=== PATIENT | female | born 1950 | race Caucasian/White ===

== ENCOUNTER 2020-02-06 14:22 | Outpatient (CLI) | payer MEDICARE, OTHER, SELFPAY ==
--- NOTE | ~2020-02-06 | MM_ITS ---
EXAMINATION: MM screening [facility] BI w rufus HISTORY: Screening mammogram TECHNIQUE: Craniocaudal and mediolateral oblique 3-D tomosynthesis images were obtained and synthetic 2-D images were generated. CAD analysis was submitted and interpreted. COMPARISON: 12/2018, , 10/08/2016 and lateral digital screening mammogram examinations BREAST PARENCHYMAL COMPOSITION: There are scattered areas of fibroglandular density. FINDINGS: Occasional small circumscribed stable benign-appearing opacities are noted bilaterally. The re is no evidence of suspicious mass, calcification, or architectural distortion to suggest malignanc y in either breast. There has been no suspicious interval change. IMPRESSION: 1. No mammographic evidence of malignancy. 2. Recommend routine screening mammography in one year. BI-RADS Category 2: Benign finding(s). Reviewed, dictated and finalized at location A. 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
== END 2020-02-06 14:23 | disposition home or self-care (01) ==
LOC: ANHIMG 14:27
PROVIDERS: PCP Internal Medicine; Visit Provider Internal Medicine
DX: Z12.31 Encounter for screening mammogram for malignant neoplasm of breast (principal)
CPT/HCPCS: 77063; 77067

== ENCOUNTER 2020-04-16 11:48 | Outpatient (CLI) | payer MEDICARE, OTHER, SELFPAY | END 2020-04-16 11:49 | disposition home or self-care (01) | LOC: ANHCOVIDVC 11:48 | PROVIDERS: PCP Internal Medicine | DX: Z23 Encounter for immunization (principal) | CPT/HCPCS: 0001A; 91300 ==

== ENCOUNTER 2020-05-07 11:42 | Outpatient (CLI) | payer MEDICARE, OTHER, SELFPAY | END 2020-05-07 11:43 | disposition home or self-care (01) | LOC: ANHCOVIDVC 11:42 | PROVIDERS: PCP Internal Medicine | DX: Z23 Encounter for immunization (principal) | CPT/HCPCS: 0002A; 91300 ==

== ENCOUNTER → 2020-06-23 11:46 | Outpatient (CLI) | payer MEDICARE, OTHER, SELFPAY ==
--- NOTE | ~2020-06-23 | XR_ITS ---
EXAMINATION: XR chest 2V DATE: 06/23/2020 12:12 INDICATION: Cough. TECHNIQUE: Frontal and lateral views of the chest were obtained. COMPARISON: Chest 2 views 09/07/2018 FINDINGS: There is mild scarring at the lung apices. No pleural effusion or pneumothorax. The heart s ize is normal. IMPRESSION: 1. Mild scarring at the lung apices. Reviewed, dictated and finalized at location B.
== END ==
PROVIDERS: Visit Provider Internal Medicine
DX: R05 Cough (principal)
CPT/HCPCS: 71046

== ENCOUNTER → 2021-01-19 12:15 | Outpatient (CLI) | payer MEDICARE, OTHER, SELFPAY ==
--- NOTE | ~2021-01-19 | MR_ITS ---
EXAMINATION: MR lumbar spine wo con DATE: 01/19/2021 13:02 INDICATION: Lumbar radiculopathy with low back and bilateral leg pain TECHNIQUE: Magnetic resonance imaging (MRI) of the lumbar spine was performed without intravenous con trast. Sequences included sagittal T2-weighted FSE, sagittal T2-weighted FS FSE, sagittal T1-weighted FSE, and axial T2-weighted FSE. COMPARISON: None FINDINGS: Unchanged 2 mm retrolisthesis L2 on L3 and 3 mm anterolisthesis L5 on S1. Vertebral body heights are normal. Severe disc height loss at L2-L3, L3-L4 and L5-S1. Increasing moderate disc height loss at L4 -L5 and mild to moderate disc height loss at L1-L2. Unchanged moderate disc height loss at T10-T11 an d T11-T12. A few focal regions of relatively high T1 hyperintense marrow signal which could represent hemangiomas or focal renal marrow sparing. Mild fibrovascular degenerative endplate changes posterio rly at both sides of the L4-L5 and L5-S1 disc space is and at the anterior aspect of the superior end plates of T11 and T12. The conus medullaris terminates at L1-L2. There is normal signal in the caudal spinal cord. Paravertebral soft tissues are unremarkable. The following disc levels are specifically discussed: T12-L1: The disc does not extend beyond the endplate margin. There is moderate bilateral facet joint osteoarthritis. There is no neural foraminal stenosis. There is no central canal stenosis. L1-L2: Disc is bulging. There is severe right and moderate left facet joint osteoarthritis. There is mild bilateral neural foraminal stenosis. There is mild central canal stenosis. L2-L3: Annular fissure and broad-based disc extrusion extending from foraminal zone to foraminal zone with disc material extending 2-3 mm caudal to the level of the superior endplate of L3. There is mil d bilateral facet joint osteoarthritis. There is mild bilateral neural foraminal stenosis. There is m ild central canal stenosis. L3-L4: Annular fissure and broad-based disc extrusion extending from foraminal zone to foraminal zone with disc material extending 2 mm caudal to the level of the superior endplate of L3. There is hyper trophy of the left ligamentum flavum. There is severe left and moderate right facet joint osteoarthr itis. There is mild bilateral neural foraminal stenosis. There is mild central canal stenosis. L4-L5: Disc is bulging with annular fissure and left foraminal zone disc extrusion with disc material extending up to 4 mm cephalad to the level of the inferior endplate of L4. There is hypertrophy of t he ligamentum flavum. There is severe bilateral facet joint osteoarthritis. There is mild to moderat e bilateral neural foraminal stenosis. There is mild central canal stenosis. L5-S1: Broad-based disc extrusion extending from foraminal zone to foraminal zone with disc material extending couple millimeters cephalad to the level of the inferior endplate of L5. There is severe bi lateral facet joint osteoarthritis. There is moderate right and mild to moderate left neural foramina l stenosis. There is mild central canal stenosis. IMPRESSION: 1. Mild progression of severe lumbar spondylosis. Reviewed, dictated and finalized at location B. 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
== END ==
PROVIDERS: Visit Provider Nurse Practitioner Family
DX: M47.26 Other spondylosis with radiculopathy, lumbar region (principal)
CPT/HCPCS: 72148

== ENCOUNTER → 2021-02-17 13:20 | Outpatient (CLI) | payer MEDICARE, OTHER, SELFPAY ==
--- NOTE | ~2021-02-17 | MM_ITS ---
EXAMINATION: MM screening [facility] BI w rufus HISTORY: Screening mammogram TECHNIQUE: Craniocaudal and mediolateral oblique 3-D tomosynthesis images were obtained and synthetic 2-D images were generated. CAD analysis was submitted and interpreted. COMPARISON: 02/06/2020, 12/18/2018, 10/13/2017 BREAST PARENCHYMAL COMPOSITION: There are scattered areas of fibroglandular density. FINDINGS: There is no evidence of suspicious mass, calcification, or architectural distortion to sugg est malignancy in either breast. There has been no suspicious interval change. IMPRESSION: 1. No mammographic evidence of malignancy. 2. Recommend routine screening mammography in one year. BI-RADS Category 1: Negative Reviewed, dictated and finalized at location A. 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
== END ==
PROVIDERS: PCP Internal Medicine; Visit Provider Obstetrics & Gynecology Gynecology
DX: Z12.31 Encounter for screening mammogram for malignant neoplasm of breast (principal)
CPT/HCPCS: 77063; 77067

== ENCOUNTER 2021-12-01 14:07 | Outpatient (CLI) | payer MEDICARE, OTHER, SELFPAY ==
--- NOTE | 2021-12-01 14:22 | ECG_ITS ---
Measurements Intervals [place] Rate: 51 P: 69 [place]: 160 QRS: 76 QRSD: 77 T: 53 QT: 430 QTc: 398 Interpretive Statements SINUS BRADYCARDIA BORDERLINE ECG COMPARED TO ECG 09/07/2018 11:24:52 NO SIGNIFICANT CHANGES Electronically Signed On 12-01-2021 15:02:34 CDT by Buddy Veras M.D.
== END 2021-12-01 14:08 | disposition home or self-care (01) ==
PROVIDERS: PCP Internal Medicine; Visit Provider Neurological Surgery
DX: Z01.818 Encounter for other preprocedural examination (principal); R94.31 Abnormal electrocardiogram [ECG] [EKG]
CPT/HCPCS: 93005

== ENCOUNTER 2021-12-09 13:18 | Outpatient (CLI) | payer MEDICARE, OTHER, SELFPAY | END 2021-12-09 13:19 | disposition home or self-care (01) | LOC: ANHSURGERY 13:26 | PROVIDERS: PCP Internal Medicine; Visit Provider Neurological Surgery | DX: M48.07 Spinal stenosis, lumbosacral region (principal); Z01.818 Encounter for other preprocedural examination | CPT/HCPCS: 36415; 86850; 86900; 86901 ==

== ENCOUNTER 2021-12-15 00:40 | Day surgery (SDC) | payer MEDICARE, OTHER, SELFPAY ==
--- NOTE | 2021-12-07 15:16 | PC.NURSE ---
Report to the Outpatient Waiting Room, entrance under the green pavilion located off [facility], at time ___30____ on date __12/15/21 . Planned Procedure Time: __1030 . Time changes happen often and if your time is changed the preop area will call you the afternoon before. - You and your visitor will be asked to self-screen and do not enter if you have any COVID symptoms. - We encourage only one visitor and NO visitors under age 16 are allowed at this time. Your visitor will receive communication by the phone number that is given day of service. - The patient visitor is requested to social distance or may leave the building when not with patient due to restrictions. - A mask is required within the hospital. Patients may have clear liquids (water, carbonated beverages, clear teas, apple juice) until 3 hours prior to surgery with a maximum of 20 ounces. - No food from midnight until time of surgery - Infants may have breast milk until 4 hours before surgery, formula 6 hours prior to surgery. - Children will be allowed to drink immediately following surgery. If applicable, please bring a bottle or sippy cup to assist with drinking. Juice, water, soda, and popsicles are readily available. For infants on formula, please bring formula the day of surgery. Pacifiers are allowed. Take the following medications with a SIP of water the morning of surgery: ___NONE Medications to discontinue per physician PT STATES ALL VITAMINS AND SUPPLEMENTS 7 DAYS PRE OP_PER DR ANTHONY Date to take last dose___12/07/21 Please no make-up, nail malay, hairspray, perfume, deodorant, or body powder the day of surgery. No jewelry (including any body piercings) or valuables the day of surgery, leave them at home. Please take a shower or bath the night before, or the morning of, surgery with an antibacterial soap. Wear comfortable, loose fitting clothing. Children are encouraged to wear pajamas. - Jewelry must be removed prior to entering the operating room. Rings and piercings that are not removed may be cut off. - The hospital will not accept responsibility for valuables. - Please leave all valuables, including medications, at home the day of surgery. If you are going home after surgery, a licensed rolloff truck driver must drive you home. - NO public transportation without another adult. - We recommend that an adult stay with you for 24 hours following discharge. - We also recommend that you do not drive, make important decision, drink alcoholic beverages, or take any drugs that were not prescribed by your health care provider for at least 24 hours after your discharge time. For Pediatric surgeries, we recommend two adults accompany the child home. Follow any additional instructions given to you from your surgeon. If you or anyone in your household have experienced Covid symptoms in the past week, please notify your surgeon or the nurse liaison at the phone number below for possible testing. Telephone instructions given to _PATIENT and asked if any additional questions and then verbalized understanding. Patient advised to call surgeon office or pre surgery nurse liaison [phone] if any additional questions.
[2021-12-07 15:25] VITALS: BMI 24.0
[2021-12-15] VITALS (15 sets, daily range): BP systolic 106–139; BP diastolic 49–97; PULSE 61–87; RESP 12–20; TEMP 36.2; O2SAT 96–100
--- NOTE | ~2021-12-15 | XR_ITS ---
EXAMINATION: XR fluoroscopy no charge DATE: 12/15/2021 12:35 INDICATION: Right L5-S1 foraminotomy TECHNIQUE: A single lateral fluoroscopic image of the lower lumbar spine was obtained during procedur e performed by Dr. Meyers. Radiologist was not present for the imaging or procedure. The amount of fluoroscopy time used during this procedure was 0.1 minutes. COMPARISON: None. FINDINGS: Moderate lumbar spondylosis. The tip of a metallic probe projects over the posterior elements of L5. Soft tissue retractors and lap sponges projected over a lucent surgical wound posterior to the lower lumbar spine. IMPRESSION: 1. Fluoroscopy utilized during neurosurgical procedure at the lower lumbar spine. See procedure note for further detail. Reviewed, dictated and finalized at location B. IMPRESSION: 1. Fluoroscopy utilized during neurosurgical procedure at the lower lumbar spin e. See procedure note for further detail.
[2021-12-15] MEDS: LACTATED RINGERS 1,000 ML 30 ML IV CONT ×2 (09:00→12:22)
[2021-12-15] MEDS: FAMOTIDINE 20 MG/2 ML VIAL IV PUSH (09:41)
--- NOTE | 2021-12-15 10:03 | WPDANESEPPF ---
Anes - Initial Pre Proc Eval Procedure: Operation Date: 12/15/21 10:30 Proposed Procedures p Right L5-S1 Foraminotomy - Juan Meyers MD Date/Time: 12/15/21 10:03 Surgeon: Juan Meyers MD Pre Op Diagnosis: Right L5-S1 Foraminal Stenosis Patient Data Age: 71 Gender: F Height: 1.63 m Weight: 62.7 kg Last Vital Signs Temp 36.2 C L 12/15/21 08:40 Pulse 61 12/15/21 08:40 Resp 18 12/15/21 08:40 BP 139/70 12/15/21 08:40 Pulse Ox 98 12/15/21 08:40 O2 Del Method Room Air 12/15/21 08:40 Allergies Allergy/AdvReac Type Severity Reaction Status Date / Time nabumetone Allergy Severe STOMACH Verified 12/15/21 09:19 BLEED erythromycin base Allergy Mild EYE DRYNESS Verified 12/15/21 09:19 metronidazole Allergy Mild HIVES Verified 12/15/21 09:19 gabapentin AdvReac Intermediate Hives Verified 12/15/21 09:19 pregabalin [From Lyrica] AdvReac Intermediate Hives Verified 12/15/21 09:19 Home Medications Medication Instructions Recorded Confirmed Type Bacillus coagulans 10 billion cell 10 cell PO DAILY 03/09/19 12/07/21 History capsule,delayed release (Probiotic (B. coagulans)) acetaminophen 650 mg 650 mg PO Q12H 03/09/19 12/07/21 History tablet,extended release (Tylenol Arthritis Pain) calcium carbonate 600 mg-vitamin 1 cap PO DAILY 03/09/19 12/07/21 History D3 10 mcg (400 unit) capsule vit C 250 mg-vit E 90 mg-zinc 40 1 tablet PO BID 03/09/19 12/07/21 History mg-copper 1 [id number] capsule (PreserVision AREDS-2) vit B complex 100 combo no.2 100 1 tablet PO .QD 09/14/19 12/07/21 History mg tablet,extended release tramadol 50 mg tablet 50 mg PO Q12H PRN pain #20 tabs 05/16/20 12/07/21 Rx atorvastatin 20 mg tablet (Lipitor) 20 mg PO DAILY #90 tabs 09/14/21 12/07/21 Rx lisinopril 20 mg tablet 20 mg PO DAILY #90 tabs 09/14/21 12/07/21 Rx Patient hx anesthesia problems: post op nausea/vomiting Family hx anesthesia problems: none Results Review: All pre-operative results and documents have been reviewed as part of the pre-operative evaluation. [facility] Past Medical History Medical History Cervicalgia Chronic pain syndrome Essential (primary) hypertension Other low back pain Radiculopathy, lumbar region Spondylosis without myelopathy or radiculopathy, lumbar region Surgical History Surgical History History of knee replacement Family History Family History Mother Family history of chronic obstructive pulmonary disease Patient's mother is Sibling Family history of chronic obstructive pulmonary disease, Onset Age: 65 Father Patient's father is Other Family history of arthritis Social History Social History Smoking status: Never smoker Second hand tobacco smoke exposure: No Alcohol intake: never Substance use: never Living arrangements: with family Spiritual care concerns: No Anes - Eval Final PreProcedure Day of Procedure 12/15/21 10:03 Patient weight: normal Heart: regular rate and rhythm Lungs: clear to auscultation Airway: Mallampati scale class II Neurological: alert and oriented Last oral intake: >/= 8 hours ASA classification: III Emergent: no Anesthesia type and monitoring: general ETT and standard monitoring Results Review: All pre-operative results and documents have been reviewed as part of the pre-operative evaluation. Informed Consent: The patient's anesthetic plan and its attendant risks and benefits were discussed with the patient/family/POA. Questions were solicited and answers provided to the satisfaction of the patient/family/POA.
--- NOTE | 2021-12-15 10:26 | WPDHPUPDATE1 ---
History and Physical Update Update Date/Time: 12/15/21 10:26 History and Physical has been reviewed, including an updated exam of the patient. There are NO changes in the patient's condition. Risks, benefits, and alternatives have been discussed and questions answered. Patient agrees to proceed with procedure.
--- NOTE | 2021-12-15 10:26 | PM.IMHP ---
H&P: HPI History of Present Illness Date/Time: 12/15/21 10:26 Chief Complaint: Back and right leg pain Narrative: Francine is a 71-year-old female with foraminal stenosis causing compression on the exiting right L5 nerve root and radicular symptoms in her lower extremity presents now for right L5-S1 far lateral foraminotomy and possible microdiskectomy. She has not changed since we saw her last. She is not having any bowel or bladder difficulty or other constitutional problems. She does not have specific muscle group weakness or dermatomal numbness. Review of Systems Review of Systems: Patient denies shortness of breath, cough, fever, chills, nausea, vomiting, weight loss, weight gain, chest pain, dysuria. She has back and leg pain as above. The review systems is otherwise negative on 12 systems except as noted elsewhere. [facility] Past Medical History Medical History Cervicalgia Chronic pain syndrome Essential (primary) hypertension Other low back pain Radiculopathy, lumbar region Spondylosis without myelopathy or radiculopathy, lumbar region Surgical History Surgical History History of knee replacement Family History Family History Mother Family history of chronic obstructive pulmonary disease Patient's mother is Sibling Family history of chronic obstructive pulmonary disease, Onset Age: 65 Father Patient's father is Other Family history of arthritis Social History Social History Smoking status: Never smoker Second hand tobacco smoke exposure: No Alcohol intake: never Substance use: never Living arrangements: with family Spiritual care concerns: No Meds Home Medications and Allergies Home Medications Medication Instructions Recorded Confirmed Type Bacillus coagulans 10 billion cell 10 cell PO DAILY 03/09/19 12/07/21 History capsule,delayed release (Probiotic (B. coagulans)) acetaminophen 650 mg 650 mg PO Q12H 03/09/19 12/07/21 History tablet,extended release (Tylenol Arthritis Pain) calcium carbonate 600 mg-vitamin 1 cap PO DAILY 03/09/19 12/07/21 History D3 10 mcg (400 unit) capsule vit C 250 mg-vit E 90 mg-zinc 40 1 tablet PO BID 03/09/19 12/07/21 History mg-copper 1 [id number] capsule (PreserVision AREDS-2) vit B complex 100 combo no.2 100 1 tablet PO .QD 09/14/19 12/07/21 History mg tablet,extended release tramadol 50 mg tablet 50 mg PO Q12H PRN pain #20 tabs 05/16/20 12/07/21 Rx atorvastatin 20 mg tablet (Lipitor) 20 mg PO DAILY #90 tabs 09/14/21 12/07/21 Rx lisinopril 20 mg tablet 20 mg PO DAILY #90 tabs 09/14/21 12/07/21 Rx Allergies Allergy/AdvReac Type Severity Reaction Status Date / Time nabumetone Allergy Severe STOMACH Verified 12/15/21 09:19 BLEED erythromycin base Allergy Mild EYE DRYNESS Verified 12/15/21 09:19 metronidazole Allergy Mild HIVES Verified 12/15/21 09:19 gabapentin AdvReac Intermediate Hives Verified 12/15/21 09:19 pregabalin [From Lyrica] AdvReac Intermediate Hives Verified 12/15/21 09:19 Vital Signs Vital Signs - 24 hr 12/15/21 08:40 Temperature 97.2 F L Pulse Rate 61 Respiratory Rate 18 Blood Pressure 139/70 Pulse Oximetry 98 Oxygen Delivery Room Air Exam Neuro: Other: Strength is normal in the bilateral lower extremities direct confrontation. Sensation is intact to light touch throughout the lower extremities. Clear to auscultation Regular rate and rhythm Assessment and Plan Assessment and plan (1) Foraminal stenosis of lumbosacral region: Code(s): M48.07 - Spinal stenosis, lumbosacral region Status: Acute Plan Francine is a 71-year-old female with back and leg pain related to fo
[2021-12-15] MEDS: ceFAZolin 2 GM/D5W 50 ML 2 GM/50 ML BAG IVPB (10:40)
[2021-12-15] MEDS: BUPIVACAINE/EPINEPHRINE 0.25% 50 ML VIAL 10 ML INFILTRATE (11:11)
--- NOTE | 2021-12-15 12:23 | W.PM.PROC2 ---
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 Description of Procedure Patient was brought to the operating room in the supine position, was sedated, intubated and placed under general anesthesia in routine fashion. She was then turned into the prone position on a Micah frame. The of operation her back was examined, marked for incision, prepped and draped in routine sterile fashion. Incision was marked over the L5 and S1 spinous processes in the midline. This area was injected with 0.5% lidocaine with [id number] epinephrine. Intravenous antibiotics given prior to incision. Incision was made with a 10 blade scalpel down to the lumbodorsal fascia. A subperiosteal dissection of the muscle soft tissue away from spinous process and lamina was performed with a subperiosteal elevator cautery on the right at L5-S1. A verifying x-rays obtained to verify the level of operation. At the L5 S1-1 level on the right Midas-Ricardo drill was used to perform a lateral resection of the pars and facet to the soft contents of the foramen were encountered. Under microscopy the yellow ligament was lifted and removed piecemeal using Kerrison punches. The nerve root was identified and reflected superiorly. The ligament was entered using an 11 blade scalpel. Curved curette Ramirez rongeur and Zachary curette were used to push free and remove hard and soft disc herniation from beneath the nerve. A limited bony foraminotomy was continued proximally using a Midas Ricardo drill Kerrison punches. These maneuvers were performed until a nerve hook could be placed above and below the nerve both proximally and distally to confirm microdecompression. The wound was then copiously irrigated with bacitracin irrigation all bleeding stopped with bipolar and Bovie cautery and Gelfoam thrombin powder. The wound was then closed in layered fashion with 2-0 Vicryl interrupted sutures in the lumbodorsal fascia and Carmencita's layer. 3-0 Vicryl buried interrupted sutures were placed dermis and the skin was closed with a running 4-0 Monocryl subcuticular stitch and dressed with Dermabond. Patient was then allowed to wake up in the operating room was taken to the recovery room in stable condition. There were no immediate complications of this operation. All counts were reported correct at the end of the case. Blood loss was 25 cc. The patient was neurologically at her baseline postoperatively. Estimated Blood Loss 25 IV Fluids 1,000 Complications None Disposition PACU [facility] Billing Surgery - Charge Forward: Surgery Billing
[2021-12-15] MEDS: fentaNYL CITRATE INJ (*CRX) 100 MCG/2 ML VIAL 25 MCG IV PUSH ×8 (12:37→13:19)
[2021-12-15] MEDS: HYDROmorphone HCL INJ (*CRX) 1 MG/ML SYR IV PUSH ×2 (13:25→13:52)
[2021-12-15] MEDS: ONDANSETRON INJ 4 MG/2 ML VIAL IV PUSH (14:52)
== END 2021-12-15 16:40 | disposition home or self-care (01) ==
PROVIDERS: PCP Internal Medicine; Visit Provider Neurological Surgery
PROC: (CPT 63005; principal; 2021-12-15 10:30)
DX: M48.07 Spinal stenosis, lumbosacral region (principal); M47.816 Spondylosis without myelopathy or radiculopathy, lumbar region; G89.4 Chronic pain syndrome; I10 Essential (primary) hypertension
CPT/HCPCS: 63056; 99199; J0690; J1100; J1170; J2405; J2704; J3010; J7120

== ENCOUNTER 2021-12-30 16:09 | Emergency (ER) | payer MEDICARE, OTHER, SELFPAY ==
[2021-12-30 16:23] VITALS: BP 160/78; PULSE 86; RESP 16; TEMP 36.7; O2SAT 99
--- NOTE | 2021-12-30 16:25 | ED.EXTPRO ---
HPI - Extremity Problem General Chief complaint: Extremity Injury, Lower Stated complaint: lt foot swelling Time Seen by Provider: 12/30/21 16:20 Source: patient Mode of arrival: ambulatory Limitations: no limitations History of Present Illness HPI Narrative: Ms. Drummond is a 71-year-old female patient presenting to the clinic today with complaints of left foot swelling and cramping that began yesterday. She reports last night she had a lot of cramping in her foot like a charley horse. She has had back surgery back on December 15 for decompression of a nerve. She reports she was having some sciatica pain to the right leg so they placed her on some prednisone 1-2 days ago. She contacted her surgeon and they felt as though this was not caused by the surgery so they told her to contact her PCP and her PCPs office sent her to the [facility] to be evaluated today. She is concerned that maybe she has a blood clot. She denies any injury Related Data Home Medications Medication Instructions Recorded Confirmed Bacillus coagulans 10 billion cell 10 cell PO DAILY 03/09/19 12/07/21 capsule,delayed release (Probiotic (B. coagulans)) acetaminophen 650 mg 650 mg PO Q12H 03/09/19 12/07/21 tablet,extended release (Tylenol Arthritis Pain) calcium carbonate 600 mg-vitamin 1 cap PO DAILY 03/09/19 12/07/21 D3 10 mcg (400 unit) capsule vit C 250 mg-vit E 90 mg-zinc 40 1 tablet PO BID 03/09/19 12/07/21 mg-copper 1 [id number]-[id number] capsule (PreserVision AREDS-2) vit B complex 100 combo no.2 100 1 tablet PO .QD 09/14/19 12/07/21 mg tablet,extended release Allergies Allergy/AdvReac Type Severity Reaction Status Date / Time nabumetone Allergy Severe STOMACH Verified 12/30/21 16:27 BLEED erythromycin base Allergy Mild EYE DRYNESS Verified 12/30/21 16:27 metronidazole Allergy Mild HIVES Verified 12/30/21 16:27 gabapentin AdvReac Intermediate Hives Verified 12/30/21 16:27 pregabalin [From Lyrica] AdvReac Intermediate Hives Verified 12/30/21 16:27 Review of Systems Review of Systems: Pertinent positives per HPI. Patient denies any fever, chills, rash, headache, visual changes, dizziness, cough, runny nose, sore throat, shortness of breath, chest pain, palpitations, nausea, vomiting, diarrhea, constipation, abdominal pain, or any urinary issues. PMFSH Past Medical History Medical History Cervicalgia Chronic pain syndrome Essential (primary) hypertension Other low back pain Radiculopathy, lumbar region Spondylosis without myelopathy or radiculopathy, lumbar region Surgical History Surgical History History of knee replacement Family History Family History Mother Family history of chronic obstructive pulmonary disease Patient's mother is Sibling Family history of chronic obstructive pulmonary disease, Onset Age: 65 Father Patient's father is Other Family history of arthritis Social History Social History Smoking status: Never smoker Second hand tobacco smoke exposure: No Alcohol intake: never Substance use: never Spiritual care concerns: No Comments At the time of my signature, I reviewed and agree with the nursing past medical, surgical, social, and family history. There is no relevant family history pertinent to the patient complaint. Exam Narrative: General: Well-developed, well nourished, in no apparent distress Head: Normocephalic, atraumatic. Cardio: Regular rate and rhythm, s1 and s2 normal, no murmur appreciated. Resp: Clear to auscultation bilaterally, no rhonchi, rales, wheezing or rubs. Musculoskeletal: No deformity, non-tender to palpation, 1+ edema to the left foot and ankle, n
--- NOTE | 2021-12-30 16:30 | PC.NURSE ---
AUTOMOBILE TESTER evaluated Pt. Discussed treatment plan. AUTOMOBILE TESTER thinks DVT is unlikely, but informed pt she could be sent to ER for further testing to check electrolytes and rule out DVT. Pt declined, stating she will follow up with PCP for blood work. Pt encouraged to go to ER if symptoms worsen before seeing PCP.
== END 2021-12-30 16:58 | disposition home or self-care (01) ==
PROVIDERS: Emergency Provider Nurse Practitioner Family; PCP Internal Medicine
DX: R22.42 Localized swelling, mass and lump, left lower limb (principal); Z96.659 Presence of unspecified artificial knee joint; I10 Essential (primary) hypertension
CPT/HCPCS: 99212; G0463

== ENCOUNTER → 2022-01-20 12:07 | Outpatient (CLI) | payer MEDICARE, OTHER, SELFPAY ==
--- NOTE | ~2022-01-20 | MR_ITS ---
EXAMINATION: MR lumbar spine wo/w con DATE: 01/20/2022 13:16 INDICATION: Back pain. TECHNIQUE: Magnetic resonance imaging (MRI) of the lumbar spine was performed without and with 12 mL MultiHance intravenous contrast. COMPARISON: Lumbar spine MRI 01/19/2021 FINDINGS: There is 5 degrees dextrocurvature of lumbar spine. There is 3 mm retrolisthesis of L2 on L 3 and 3 mm anterolisthesis of L5 on S1. Vertebral body heights are normal. There is mildly decreased disc height at L1-L2 and severely decreased disc height from L2-L3 through L5-S1 with endplate remode ling. The distal spinal cord signal intensity is normal. The conus medullaris is at L1. The following disc levels are specifically discussed: L1-L2: The disc is bulging. There is severe right and mild left facet joint osteoarthritis. There is mild bilateral neural foraminal stenosis. There is mild central canal stenosis. L2-L3: The disc is bulging. There is moderate bilateral facet joint osteoarthritis. There is mild bobbi ateral neural foraminal stenosis. There is mild central canal stenosis. L3-L4: The disc is bulging. There is severe bilateral facet joint osteoarthritis. There is mild bilat eral neural foraminal stenosis. There is mild central canal stenosis. L4-L5: The disc is bulging and has an annular fissure. There is severe bilateral facet joint osteoart hritis. There is mild bilateral neural foraminal stenosis. There is mild central canal stenosis. L5-S1: The disc is bulging and has an annular fissure. There is severe bilateral facet joint osteoart hritis. There are new changes of posterior decompression of the right neural foramen with enhancing g ranulation tissue in the neural foramen and small seroma in the surgical bed. There is mild left neur al foraminal stenosis. There is mild central canal stenosis. IMPRESSION: 1. Severe lumbar spondylosis with interval intervention at L5-S1 on the right. Reviewed, dictated and finalized at location E. TECHNICIAN
== END ==
PROVIDERS: PCP Internal Medicine; Visit Provider Neurological Surgery
DX: M47.896 Other spondylosis, lumbar region (principal)
CPT/HCPCS: 72158; A9577

== ENCOUNTER → 2022-07-02 15:05 | Outpatient (CLI) | payer MEDICARE, OTHER, SELFPAY ==
--- NOTE | ~2022-07-02 | MM_ITS ---
EXAMINATION: MM screening [facility] BI w rufus HISTORY: Screening mammogram TECHNIQUE: Craniocaudal and mediolateral oblique 3-D tomosynthesis images were obtained and synthetic 2-D images were generated. CAD analysis was submitted and interpreted. COMPARISON: Prior mammograms dating back to 10/08/2016 BREAST PARENCHYMAL COMPOSITION: There are scattered areas of fibroglandular density. FINDINGS: No suspicious mass, calcification, or architectural distortion are identified in either car ast to suggest malignancy. There has been no suspicious interval change. IMPRESSION: 1. No mammographic evidence of malignancy. 2. Recommend routine screening mammography in one year. BI-RADS Category 1: Negative Reviewed, dictated and finalized at location A.
== END ==
PROVIDERS: PCP Internal Medicine; Visit Provider Obstetrics & Gynecology Gynecology
DX: Z12.31 Encounter for screening mammogram for malignant neoplasm of breast (principal)
CPT/HCPCS: 77063; 77067

== ENCOUNTER 2022-09-25 11:54 | Emergency (ER) | payer MEDICARE, OTHER, SELFPAY ==
[2022-09-25 12:07] VITALS: BP 161/78; PULSE 68; RESP 16; TEMP 36.6; O2SAT 98
--- NOTE | 2022-09-25 12:52 | ED.URI ---
HPI - URI/Sore Throat General Chief Complaint: Upper Respiratory Infection Stated Complaint: HEADACHE/TIRED/COUGH/SORE THROAT/COVID EXPOSURE Time Seen by Provider: 09/25/22 12:15 Source: patient, RN notes reviewed and old records reviewed Mode of arrival: ambulatory Limitations: no limitations History of Present Illness HPI Narrative: 72-year-old who presents to [facility] with complaints of headache, chills, cough, sore throat, fatigue with body aches which started yesterday. Patient reports she has had known COVID exposure on when she went to lunch with a friend who tested positive yesterday. Patient reports that she has been COVID vaccinated X2 with one booster. She reports that she has been taking OTC cold and flu medication. MD elicited complaint: cough, sore throat and other (headache and body aches) Onset (ago): day(s) (1) Severity: mild Able to tolerate fluids by mouth: Yes Treatments prior to arrival: other (OTC cold and flu medication) Related Data Home Medications Medication Instructions Recorded Confirmed Bacillus coagulans 10 billion cell 10 cell PO DAILY 03/09/19 09/25/22 capsule,delayed release (Probiotic (B. coagulans)) calcium carbonate 600 mg-vitamin 1 cap PO DAILY 03/09/19 09/25/22 D3 10 mcg (400 unit) capsule vit C 250 mg-vit E 90 mg-zinc 40 1 tablet PO BID 03/09/19 09/25/22 mg-copper 1 [id number] capsule (PreserVision AREDS-2) vit B complex 100 combo no.2 100 1 tablet PO .QD 09/14/19 09/25/22 mg tablet,extended release Allergies Allergy/AdvReac Type Severity Reaction Status Date / Time nabumetone Allergy Severe STOMACH Verified 09/21/22 13:08 BLEED erythromycin base Allergy Mild EYE DRYNESS Verified 09/21/22 13:08 metronidazole Allergy Mild HIVES Verified 09/21/22 13:08 gabapentin AdvReac Intermediate Hives Verified 09/21/22 13:08 pregabalin [From Lyrica] AdvReac Intermediate Hives Verified 09/21/22 13:08 duloxetine [From Cymbalta] AdvReac Mild Blurry Verified 09/21/22 13:08 Vision Review of Systems Review of Systems: CONSTITUTIONAL: Denies known fever,positive chills, or sweats. EYES: Denies visual changes, redness, or discharge. ENT: Reports some rhinorrhea,nasal congestion, sore throat, no otalgia. CARDIOVASCULAR: Denies chest pain, palpitations, or edema. RESPIRATORY: Reports cough denies dyspnea. GASTROINTESTINAL: Denies abdominal pain, nausea, vomiting, or diarrhea. GENITOURINARY: Denies dysuria or hematuria. SKIN: Denies rash or itching. MUSCULOSKELETAL: Denies back pain, joint pain, reports body aches NEUROLOGIC: Reports headache,no numbness, or weakness. PSYCHIATRIC: Denies anxiety or depression. All systems reviewed & are unremarkable except as noted in HPI and below PMFSH Past Medical History Medical History Cervicalgia Chronic pain syndrome Essential (primary) hypertension Hyperlipidemia Other low back pain Radiculopathy, lumbar region Spondylosis without myelopathy or radiculopathy, lumbar region Surgical History Surgical History (Updated 09/27/22 @ 07:32 by Valerie Payan NP) H/O section History of knee replacement History of tonsillectomy and adenoidectomy History of tubal ligation Hx of appendectomy Family History Family History Mother Family history of chronic obstructive pulmonary disease Patient's mother is Sibling Family history of chronic obstructive pulmonary disease, Onset Age: 65 Father Patient's father is Other Family history of arthritis Social History Social History Smoking status: Never smoker Second hand tobacco smoke exposure: No Alcohol intake: never Substance use: never Lack of Transportation: No Lack of Food: Never True Current Housing: I Have Housing C
== END 2022-09-25 13:12 | disposition home or self-care (01) ==
PROVIDERS: Emergency Provider Registered Nurse; PCP Internal Medicine
DX: Z20.822 Contact with and (suspected) exposure to COVID-19 (principal); I10 Essential (primary) hypertension; E78.5 Hyperlipidemia, unspecified; M54.16 Radiculopathy, lumbar region; M47.816 Spondylosis without myelopathy or radiculopathy, lumbar region
CPT/HCPCS: 87426; 99213; C9803; G0463

== ENCOUNTER → 2022-10-12 13:38 | Outpatient (CLI) | payer MEDICARE, OTHER, SELFPAY ==
--- NOTE | ~2022-10-12 | XR_ITS ---
XR chest 2V DATE: 10/12/2022 14:44 INDICATION: Cough TECHNIQUE: 2 views COMPARISON: 06/23/2020 2 view chest FINDINGS: Bilateral hyperinflation. Heart size is within normal range. No hilar or mediastinal enlarg ement. No pulmonary infiltrate or consolidation, pleural effusion or pulmonary vascular congestion or pneumo thorax. Osteopenia. IMPRESSION: Bilateral hyperinflation; no active cardiopulmonary disease or significant change since Reviewed, dictated and finalized at location L. IMPRESSION: Bilateral hyperinflation; no active cardiopulmonary disease or sign ificant change since 06/23/2020
== END ==
PROVIDERS: PCP Internal Medicine; Visit Provider Physician Assistant
DX: R05.9 Cough, unspecified (principal); R91.8 Other nonspecific abnormal finding of lung field
CPT/HCPCS: 71046

== ENCOUNTER → 2022-11-15 13:11 | Outpatient (CLI) | payer MEDICARE, OTHER, SELFPAY ==
--- NOTE | ~2022-11-15 | US_ITS ---
EXAMINATION: US thyroid DATE: 11/15/2022 13:41 INDICATION: Thyroid mass TECHNIQUE: Multiple ultrasound images of the thyroid were obtained. COMPARISON: None. FINDINGS: The right thyroid lobe measures 4.5 x 1.1 x 1.1 cm. The left thyroid lobe measures 4.7 x 1.3 x 1.5 c m. 2.0 cm wider than tall solid isoechoic nodule at the inferior left thyroid with smooth and ill-de fined margins and without echogenic foci (TI-RADS 3, mildly suspicious , FNA if >=2.5 cm, annual foll owup is >1.5 cm). 8 mm wider than tall solid hypoechoic nodule with ill-defined margins and without e chogenic foci also in the left thyroid lobe (TI-RADS 4, moderately suspicious , FNA if >=1.5 cm, duyen al followup is >=1 cm). Similar appearing 1.1 cm TI RADS 4 nodule at the inferior right thyroid lobe. There are a few additional <6 mm nodules in the right thyroid lobe. IMPRESSION: 1. Multinodular goiter. Annual ultrasound follow-up would be recommended for the 2.0 cm TI RADS 3 lef t thyroid nodule and the 1.1 cm TI RADS 4 right thyroid nodule. Reviewed, dictated and finalized at location A. IMPRESSION: 1. Multinodular goiter. Annual ultrasound follow-up would be recommended for th e 2.0 cm TI RADS 3 left thyroid nodule and the 1.1 cm TI RADS 4 right thyroid n odule.
== END ==
PROVIDERS: PCP Internal Medicine; Visit Provider Otolaryngology
DX: E04.2 Nontoxic multinodular goiter (principal)
CPT/HCPCS: 76536

== ENCOUNTER 2022-12-14 12:26 | Outpatient (CLI) | payer MEDICARE, OTHER, SELFPAY ==
--- NOTE | ~2022-12-14 | US_ITS ---
EXAMINATION: US FNA w image guidance, US FNA additional DATE: 12/14/2022 13:32 INDICATION: Disorder of thyroid with bilateral thyroid nodules TECHNIQUE: A time-out was performed to verify the patient's name, date of , and procedure to be performed . The procedure and its benefits and risks were discussed with the patient. Risks specifically discus sed included bleeding and infection. The patient understood the risks and agreed to proceed. The neck was prepped and draped in the usual sterile manner. Attention was first turned to the left thyroid n odule. 3 mL 1% lidocaine was used for local anesthesia. 6 passes were made with a 25G needle into th e lesion. Appropriate needle location was documented with continuous sonographic guidance. Attention was then turned to the right thyroid nodule. An additional 3 mL 1% lidocaine was used for local anes thesia. 6 passes were made with a 25G needle into the lesion with continuous sonographic guidance. St erile bandages were applied. There were no immediate complications. FINDINGS: Grayscale ultrasound images demonstrate biopsy needles advanced into first a 2.0 cm TI RADS 3 solid i soechoic nodule at the inferior left thyroid. Subsequent images demonstrate biopsy needles advanced i nto a 1.1 cm TI RADS 4 solid hypoechoic nodule at the inferior right thyroid. IMPRESSION: 1. Successful ultrasound-guided fine needle aspiration of a 2.0 cm TI RADS 3 left thyroid nodule. 2. Successful ultrasound guided fine needle aspiration of a 1.1 cm TI RADS 4 right thyroid nodule. Reviewed, dictated and finalized at location A. IMPRESSION: 1. Successful ultrasound-guided fine needle aspiration of a 2.0 cm TI RADS 3 l eft thyroid nodule. 2. Successful ultrasound guided fine needle aspiration of a 1.1 cm TI RADS 4 ri ght thyroid nodule.
== END 2022-12-14 12:27 | disposition home or self-care (01) ==
LOC: ANHIMG 12:36
PROVIDERS: PCP Internal Medicine; Visit Provider Otolaryngology
DX: E07.9 Disorder of thyroid, unspecified (principal)
CPT/HCPCS: 10005; 10006; 88173; 88305

== ENCOUNTER 2023-01-13 12:15 | Outpatient (CLI) | payer MEDICARE, OTHER, SELFPAY ==
--- NOTE | ~2023-01-13 | US_ITS ---
EXAMINATION: 1. US FNA w image guidance 2. US FNA additional DATE: 01/13/2023 13:27 INDICATION: Disorder of thyroid, unspecified. TECHNIQUE: The procedure and its benefits and risks were discussed with the patient. Risks specifically discusse d included bleeding. The patient verbalized understanding of the risks and agreed to proceed. The nec k was prepped and draped in the usual sterile manner. 1% lidocaine was used for local anesthesia. 6 passes were made with a 25G needle into the lesion in right thyroid lobe under ultrasound guidance. 6 passes were made with a 25-gauge needle into the lesion in left thyroid lobe under ultrasound mame nce. There were no immediate complications. FINDINGS: Grayscale ultrasound images demonstrate needles advanced into a 1.1 cm nodule in right thyroid lobe f or biopsy. Grayscale ultrasound images demonstrate needles advanced into a 2.0 cm nodule in left thyr oid lobe. IMPRESSION: 1. Ultrasound-guided fine needle aspiration of a 1.1 cm nodule in right thyroid lobe. 2. Ultrasound-guided fine-needle aspiration of a 2.0 cm nodule in left thyroid lobe. Reviewed, dictated and finalized at location A. AND DIE REPAIRER IMPRESSION: 1. Ultrasound-guided fine needle aspiration of a 1.1 cm nodule in right thyroi d lobe. 2. Ultrasound-guided fine-needle aspiration of a 2.0 cm nodule in left thyroid lobe.
== END 2023-01-13 12:16 | disposition home or self-care (01) ==
LOC: ANHIMG 12:16
PROVIDERS: PCP Internal Medicine; Visit Provider Otolaryngology
DX: E07.9 Disorder of thyroid, unspecified (principal)
CPT/HCPCS: 10005; 10006; 88173; 88305

== ENCOUNTER 2023-04-11 10:06 | Outpatient (CLI) | payer MEDICARE, OTHER, SELFPAY ==
--- NOTE | ~2023-04-11 | US_ITS ---
Limited Abdominal Sonogram: Real-time sonographic imaging of the right upper quadrant was performed. Clinical History: Abnormal findings of blood chemistry Findings: The liver appears normal with no evidence of mass lesion or bile duct dilatation. Main por fito vein demonstrates normal direction of flow. The gallbladder is well distended, and appears normal with no evidence of gallstone or wall thickening. The common bile duct measures 6 mm. The visualize d pancreas, aorta, and IVC are unremarkable. Impression: No significant abnormality seen. Reviewed, dictated and finalized at location M. LE TIER Impression: No significant abnormality seen.
== END 2023-04-11 10:07 ==
PROVIDERS: PCP Internal Medicine; Visit Provider Internal Medicine
DX: R79.89 Other specified abnormal findings of blood chemistry (principal)
CPT/HCPCS: 76705

== ENCOUNTER 2023-08-03 12:28 | Outpatient (CLI) | payer MEDICARE, OTHER, SELFPAY ==
--- NOTE | ~2023-08-03 | MM_ITS ---
EXAMINATION: MM screening [facility] BI w rufus HISTORY: Screening TECHNIQUE: Craniocaudal and mediolateral oblique 3-D tomosynthesis images were obtained and synthetic 2-D images were generated. CAD analysis was submitted and interpreted. COMPARISON: Comparison to multiple prior studies sequentially, with oldest reviewed study dated 10/08. BREAST PARENCHYMAL COMPOSITION: Not dense: There are scattered areas of fibroglandular density. FINDINGS: There is no evidence of suspicious mass, calcification, or architectural distortion to sugg est malignancy in either breast. There has been no suspicious interval change. IMPRESSION: 1. No mammographic evidence of malignancy. 2. Recommend routine screening mammography in one year. BI-RADS Category 1: Negative Reviewed, dictated and finalized at location B.
== END 2023-08-03 12:29 ==
PROVIDERS: PCP Internal Medicine; Visit Provider Obstetrics & Gynecology Gynecology
DX: Z12.31 Encounter for screening mammogram for malignant neoplasm of breast (principal)
CPT/HCPCS: 77063; 77067

== ENCOUNTER 2023-11-16 11:40 | Outpatient (CLI) | payer MEDICARE, OTHER, SELFPAY ==
--- NOTE | ~2023-11-16 | US_ITS ---
EXAMINATION: US thyroid DATE: 11/16/2023 12:01 INDICATION: Disorder of thyroid, unspecified. TECHNIQUE: Multiple ultrasound images of the thyroid were obtained. COMPARISON: Ultrasound 11/15/2022 FINDINGS: The right thyroid lobe measures 4.5 x 1.1 x 1.4 cm. The left thyroid lobe measures 4.7 x 1.3 x 1.7 c m. In the right thyroid lobe, there is a 4 mm nodule. In the right thyroid lobe, there is a 5 mm vincent id, hypoechoic, wider than tall nodule with smooth margin without echogenic foci (TI-RADS TR4). In th e left thyroid lobe, there is a 10 mm solid, hypoechoic, wider than tall nodule with smooth margin an d punctate echogenic foci (TR5). In the left thyroid lobe, there is a 16 mm solid, isoechoic, wider t beard tall nodule with ill-defined margin without echogenic foci (TR3), stable from 01/13/23 when biops y was benign. IMPRESSION: 1. Thyroid nodules. Consider ultrasound-guided fine needle aspiration of the 10 mm left thyroid nodul e. Reviewed, dictated and finalized at location A. IMPRESSION: 1. Thyroid nodules. Consider ultrasound-guided fine needle aspiration of the 10 mm left thyroid nodule.
== END 2023-11-16 11:41 | disposition home or self-care (01) ==
LOC: MICIMG 11:41
PROVIDERS: PCP Otolaryngology; Visit Provider Internal Medicine
DX: E04.2 Nontoxic multinodular goiter (principal)
CPT/HCPCS: 76536

== ENCOUNTER 2023-12-27 12:10 | Outpatient (CLI) | payer MEDICARE, OTHER, SELFPAY ==
--- NOTE | ~2023-12-27 | US_ITS ---
EXAMINATION: US FNA w image guidance DATE: 12/27/2023 13:32 INDICATION: Disease of thyroid, unspecified. TECHNIQUE: The procedure and its benefits and risks were discussed with the patient. Risks specifically discusse d included bleeding. The patient verbalized understanding of the risks and agreed to proceed. The nec k was prepped and draped in the usual sterile manner. 1% lidocaine was used for local anesthesia. 7 passes were made with a 25G needle into the lesion under ultrasound guidance. There were no immedia te complications. FINDINGS: Grayscale ultrasound images demonstrate needles advanced into a 10 mm nodule in left thyroid lobe for biopsy. IMPRESSION: 1. Ultrasound-guided fine needle aspiration of a left thyroid nodule. Reviewed, dictated and finalized at location A. TH SYSTEMS ANALYST
== END 2023-12-27 12:11 | disposition home or self-care (01) ==
LOC: ANHIMG 12:11
PROVIDERS: PCP Otolaryngology; Visit Provider Otolaryngology
DX: E07.9 Disorder of thyroid, unspecified (principal)
CPT/HCPCS: 10005; 88172; 88173; 88305

== ENCOUNTER 2024-05-09 10:45 | Outpatient (CLI) | payer MEDICARE, OTHER, SELFPAY ==
--- NOTE | ~2024-05-09 | US_ITS ---
EXAMINATION: US thyroid DATE: 05/09/2024 11:07 INDICATION: Disorder of thyroid, unspecified. TECHNIQUE: Multiple ultrasound images of the thyroid were obtained. COMPARISON: Ultrasound 11/16/2023 FINDINGS: The right thyroid lobe measures 4.2 x 0.9 x 1.3 cm. The left thyroid lobe measures 4.2 x 1.3 x 1.4 c m. The thyroid demonstrates heterogeneous echogenicity and increased vascularity. In the left thyroi d lobe, there is an 18 mm solid, isoechoic, wider than tall nodule with ill-defined margin without ec hogenic foci (TI-RADS TR3), stable from 01/13/23 when biopsy was benign. In the left thyroid lobe, th ere is a 3 mm nodule. In the right thyroid lobe, there is a 3 mm nodule. In the right thyroid lobe, t here is a 9 mm solid, isoechoic, wider than tall nodule with ill-defined margin without echogenic foc i (TR3). IMPRESSION: 1. Thyroid nodules, likely not clinically significant. No follow-up is needed. 2. Heterogeneous, hypervascular thyroid, likely chronic lymphocytic (Vahid) thyroiditis. Reviewed, dictated and finalized at location A.
== END 2024-05-09 10:46 | disposition home or self-care (01) ==
PROVIDERS: PCP Internal Medicine; Visit Provider Internal Medicine
DX: E07.9 Disorder of thyroid, unspecified (principal); E04.2 Nontoxic multinodular goiter
CPT/HCPCS: 76536

== ENCOUNTER 2024-05-11 12:47 | Outpatient (CLI) | payer MEDICARE, OTHER, SELFPAY ==
--- NOTE | ~2024-05-11 | XR_ITS ---
EXAMINATION: XR chest 2V 05/11/2024 14:01 INDICATION: Fatigue PROCEDURE: 2 view chest COMPARISON: 12/21/2012 FINDINGS: The lungs are clear. The cardiomediastinal silhouette is within normal limits. There are no pleural effusions. There is no pneumothorax suspected. IMPRESSION: 1: NO ACUTE CARDIOPULMONARY DISEASE. Reviewed, dictated and finalized at location A.
== END 2024-05-11 12:48 | disposition home or self-care (01) ==
LOC: MICIMG 12:48
PROVIDERS: PCP Internal Medicine; Visit Provider Internal Medicine
DX: R53.83 Other fatigue (principal)
CPT/HCPCS: 71046

== ENCOUNTER 2024-05-17 09:26 | Outpatient (CLI) | payer MEDICARE, OTHER, SELFPAY ==
--- NOTE | ~2024-05-17 | NM_ITS ---
EXAMINATION: NM nette stress w perfusion DATE: 05/17/2024 12:28 CDT INDICATION: Fatigue TECHNIQUE: Rest images were obtained following intravenous administration of 11.5 mCi Tc99m tetrofosm in (Myoview). The patient was infused intravenously with Lexiscan (regadenoson). Then, 33 mCi Tc99m t etrofosmin (Myoview) was administered intravenously, and stress images were obtained. Data was recons tructed into short axis and horizontal and vertical long axis SPECT images. Gated SPECT images were a lso obtained. COMPARISON: None. FINDINGS: There is no definite reversible or fixed perfusion abnormality to suggest ischemia or infar ction. There is no segmental wall motion abnormality. Left ventricular ejection fraction measures 8 0%. IMPRESSION: 1. No definite ischemia or infarct. 2. Normal left ventricular ejection fraction measuring 80%. Reviewed, dictated and finalized at location A.
--- OUTSIDE RECORDS SUMMARY | 2024-05-17 09:49 | XMS_ITS | Continuity of Care Document ---
Author Organization [facility] Address [address] [place] [address] Phone Care Team Providers Care Leather Piece Inspector Name Role Phone Hill OD, Andrea Unavailable Unavailable Procedures Procedure Date Cntct Lens Hydrophil Bifocal Medical Tax Cntct Lens Hydrophil Bifocal Qnary Intivix Contact Lens Check Contact Lens Check Contact Lens Check Eye Exam & Treatment Refraction Contact Lens Hydrophilic, Spherical Qnary Intivix CL Replacement - Vistakon Disp W/BW Soft Qnary [facility] No Charge Contact Lens Check No Charge Contact Lens Check No Charge Contact Lens Check Eye Exam & Treatment Refraction CL Replacement - Vistakon Disp W/BW Soft Qnary [facility] Advance Directives Directive Yes / No Effective Date File Name No Information Encounters Encounter Description Practice Location Reason(s) For Visit Diagnoses Date Provider Providers Copied on Encounter [facility], [address] [place] [address] [address], [place], [place], [id number], [place] tel:[phone] [facility] No Information 0 Hill OD Andrea. [address] , [address], [place], [address], [place]. tel:[phone] [facility], [address], [place], [place], [id number], [place] tel:[phone] [facility] No Information May-1 9-201 0 Hill OD Andrea. [address] , [address], [place], [place], [facility], [place]. tel:[phone] [facility], [address], [place], [place], [id number], [place] tel:[phone] [facility] No Information May-1 4-201 0 Hill OD Andrea. [address] , [address], [place], [place], [facility], [place]. tel:[phone] [facility], [address] [place] [address] [address], [place], [place], [id number], [place] tel:[phone] [facility] No Information May-0 7-201 0 Hill OD Andrea. [address] , [address], [place], [facility], [place]. tel:[phone] [facility], [address] [place] [address] [address], [place], [place], [id number], [place] tel:[phone] [facility] No Information Apr-3 0-201 0 Hill OD Andrea. [address] , [address], [place], [place], [facility], [place]. tel:[phone] [facility], [address] [place] [address] [address], [place], [place], [id number], [place] tel:[phone] [facility] No Information Apr-2 3-201 0 Hill OD Andrea. [address] , [address], [place], [place], [facility], [place]. tel:[phone] [facility], [address], [place], [place], [id number], [place] tel:[phone] [facility] No Information Mar-2 3-201 0 Hill OD Andrea. [address] , [address], [place], [address], [place]. tel:[phone] [facility], [address] [place] [address] [address], [place], [place], [id number], [place] tel:[phone] [facility] No Information Sergio-0 4-200 9 Hill OD Andrea. [address] , [address], [place], [facility], [place]. tel:[phone] [facility], [address] [place] [address] [address], [place], [place], [id number], [place] tel:[phone] [facility] No Information May-2 1-200 9 Hill OD Andrea. [address] , [address], [place], [facility], [place]. tel:[phone] [facility], [address] [place] [address] [address], [place], [place], [id number], [place] tel:[phone] [facility] No Information May-0 7-200 9 Hill OD Andrea. [address] , [address], [place], [facility], [place]. tel:[phone] [facility], [address] [place] [address] [address], [place], [place], [id number], [place] tel:[phone] [facility] No Information Apr-3 0-200 9 Hill OD Andrea. [address] , [address], [place], [facility], [place]. tel:[phone] [facility], [address] [place] [address] [address], [place], [place], [id number], [place] tel:[phone] [facility] No Information Apr-2 3-200 9 Hill OD Andrea. [address] , [address], [place], [facility], [place]. tel:[phone] [facility], [address], [place], [place], [id number], [place] tel:[phone] [facility] No Information 0-200 7 Hill OD Andrea. [address] , [address], [place], [address], [place]. tel:[phone] Family History Family Member Type Diagnosis Age At Onset No Information Payers Payer name Insurance type Covered constitution party ID Authoriza tion(s) No Information Social History Type Description Quantity Date Captured Comments Sex Female Smoking Status No Information Chief Complaint And Reason For Visit No Information Reason For Referral Reason For Referral No Information History Of Present Illness Encounter Date Complaint History Of Prese nt Illness No Information Functional Status Date Functional Assessmen t No Information Instructions Date Instruction Additional Infor mation No Information Assessments Type Assessment Date No Information Patient Care Teams Name Effective Dates (start - stop) Status Members No Information
--- OUTSIDE RECORDS SUMMARY | 2024-05-17 09:49 | XMS_ITS | Encounter Summary ---
Author Organization [facility] Address [address] [place] [address] Care Team Providers Care Underwriter Mortgage Loan Name Role Phone Unavailable Primary Care Provider Unavailabl e Encounter Details Date Type Department Care Team (Late st Contact Info) Description 08/19/2023 Lab Requisition [facility] - DermPath Lab [address] [place] [id number] Geoff Farr MD [address] [address] Social History Tobacco Use Types Packs/Day Years Used Date Smoking Tobacco: Never Assessed Sex and Gender Information Value Date Recorded Sex Assigned at Not on file Gender Identity Not on file Sexual Orientation Not on file documented as of this encounter Plan of Treatment Not on file documented as of this encounter Procedures Procedure Name Priority Date/Time Associated Diagnosis Comments DERMATOPATHOLOGY Routine 08/17/2023 12:0 0 AM CDT documented in this encounter Results * DERMATOPATHOLOGY (08/17/2023 12:00 AM CDT) Case Report Dermatopathology Report Case: [id number] Authorizing Provider: Geoff Farr MD Collected: 08/17/2023 12:00 AM Ordering Location: [facility] - Received: 08/22/2023 08:57 AM DermPath Lab Pathologist: Cathy Parks MD Specimen: Skin, left lateral cheek anterior to jaw angle 12:20 PM CDT DERMATOPATHOLOGY LABORATORY Final Diagnosis Specimen A. SKIN, left lateral cheek anterior to jaw angle: BENIGN VERRUCOUS KERATOSIS (L82.1) 12:20 PM CDT DERMATOPATHOLOGY LABORATORY Clinical History R/O ISK vs SCC vs AK 12:20 PM CDT DERMATOPATHOLOGY LABORATORY Gross Description Specimen A: Received is one formalin filled container labeled with the patient's name and designated left lateral cheek anterior to jaw angle. The specimen consists of a shave biopsy measuring 5x5x1 mm. Jar 0. 12:20 PM T DERMATOPATHOLOGY LABORATORY Microscopic Description Specimen A. SKIN, left lateral cheek anterior to jaw angle: Sections show hyperkeratosis, papillomatosis, hypergranulosis, and acanthosis. These histological findings can be seen in a verruca vulgaris or a seborrheic keratosis. 12:20 PM CDT DERMATOPATHOLOGY LABORATORY Disclaimer An external and internal positive and negative controls are appropriate for the histochemical, immunohistochemical and immunofluorescence stain(s) in this case (if any), except where stated explicitly. The performance characteristics of the stain(s) cited in this report were developed and its performance characteristic determined by the Dermatopathology Laboratory at [facility], directed by Dr. Sarah Orozco. These tests need not be, and therefore are not, approved by the [place] Food and Drug Administration. The tests are used for clinical purposes. Billing Codes Specimen Charges Stain Charges 61754 1 12:20 PM CDT DERMATOPATHOLOGY LABORATORY Embedded Images 12:20 PM CDT DERMATOPATHOLOGY LABORATORY Pathology/Cytolog y TISSUE SPECIMEN FROM SKIN / Unknown 08/17/2023 08/22/2023 8:57 AM CDT Geoff Farr MD LAB - PATHOLOGY/CYTO LOGY ORDERABLES DERMATOPATHOLOGY LABORATORY [facility] - Department of Dermatology [address], [address] [phone] documented in this encounter Visit Diagnoses Not on filedocumented in this encounter
--- OUTSIDE RECORDS SUMMARY | 2024-05-17 09:49 | XMS_ITS | Encounter Summary ---
Author Organization [facility] Address [address] [facility] [place] [address] Care Team Providers Care Inspector Pawnshop Detail Name Role Phone Unavailable Primary Care Provider Unavailabl e Encounter Details Date Type Department Care Team (Late st Contact Info) Description 02/21/2020 Lab Requisition [facility] DermPath Lab [address] [place] [id number] Geoff Farr MD [address] [place] [address] Social History Tobacco Use Types [...] Priority Date/Time Associated Diagnosis Comments DERMATOPATHOLOGY Routine 02/20/2020 12:0 0 AM TOOL POLISHING MACHINE OPERATOR documented in this encounter Results * DERMATOPATHOLOGY (02/20/2020 12:00 AM TOOL POLISHING MACHINE OPERATOR) Case Report Dermatopathology Report Case: [id number] Authorizing Provider: Geoff Farr MD Collected: 02/20/2020 12:00 AM Ordering Location: [facility] DermPath Lab Received: 02/21/2020 11:23 AM Pathologist: Linnette Orozco MD Specimens: A) - Skin, post left neck B) - Skin, right lat neck 1:16 PM TOOL POLISHING MACHINE OPERATOR DERMATOPATHOLOGY LABORATORY Final Diagnosis Specimen A. SKIN, post left neck: EPIDERMOID CYST (L72.0) NOT PRESENT AT SAMPLED MARGIN Specimen B. 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 Check margins B: R/O BCC,SCC,ISK,HAK 1:16 PM [facility] DERMATOPATHOLOGY LABORATORY Gross Description Specimen A: Received is one formalin filled container labeled with the patient's name and designated post left neck. The specimen consists of a punch excision measuring 9x8x11 mm, inked and bisected. Jar 0. Specimen B: Received is one formalin filled container labeled with the patient's name and designated right lat neck. The specimen consists of a shave biopsy measuring 10x9x2 mm. Jar 0. 1 1:16 PM [facility] DERMATOPATHOLOGY LABORATORY Microscopic Description Specimen A. SKIN, post left neck: Within the dermis, there is a space lined by epithelium that resembles normal epidermis and the infundibular portion of the hair follicle. This lesion is not present at the sampled margin of the specimen. Specimen B. SKIN, right lat neck: Sections show hyperkeratosis, papillomatosis, hypergranulosis, and acanthosis. These histological findings can be seen in a verruca vulgaris or a seborrheic keratosis. Sections show non-specific changes, including solar elastosis and vascular ectasia. 1 1:16 PM [facility] DERMATOPATHOLOGY LABORATORY Disclaimer An external and internal positive and negative controls are appropriate for the histochemical, immunohistochemical and immunofluorescence stain(s) in this case (if any), except where stated explicitly. The performance characteristics of the stain(s) cited in this report were developed and its performance characteristic determined by the Dermatopathology Laboratory at [facility], directed by Dr. Sarah Orozco. These tests need not be, and therefore are not, approved by the [place] Food and Drug Administration. The tests are used for clinical purposes. Billing Codes Specimen Charges Stain Charges 38405 60786 1 1 1 1:16 PM [facility] DERMATOPATHOLOGY LABORATORY Embedded Images 1:16 PM [facility] DERMATOPATHOLOGY LABORATORY Pathology/Cytology TISSUE SPECIMEN FROM SKIN / Unknown 02/20/2020 02/21/2020 11:23 AM TOOL POLISHING MACHINE OPERATOR Miscellaneous samples (specimen) TISSUE SPECIMEN FROM SKIN / Unknown 02/20/2020 02/21/2020 11:23 AM TOOL POLISHING MACHINE OPERATOR Geoff Farr MD LAB - PATHOLOGY/CYTO LOGY ORDERABLES DERMATOPATHOLOGY LABORATORY [facility] - Department of Dermatology [facility] [address] [place] [address], [address] [phone] documented in this encounter Visit Diagnoses Not on filedocumented in this encounter
--- OUTSIDE RECORDS SUMMARY | 2024-05-17 09:49 | XMS_ITS | Clinical Summary ---
Author Organization [facility] Address [address] [facility] [place] [address] Care Team Providers Care Jointer Submarine Cable Name Role Phone Unavailable Primary Care Provider Unavailabl e Source Comments [facility],non-owned Affiliates and Associated Physician Practices is amultiple site organization consisting of ambulatory clinics and hospital sitesin [place], [place], [place] and [place]. This disclosure is being madepursuant to the Care Everywhere program and may not contain all information available regarding this patient. Last updated 17.[facility] [employer] Social History Tobacco Use Types Packs/Day Years Used Date Smoking Tobacco: Never Assessed Sex and Gender Information Value Date Recorded Sex Assigned at Not on file Gender Identity Not on file Sexual Orientation Not on file Plan of Treatment Health Maintenance Due Date Last Done Comments BONE DENSITY TESTING 1950 COLOGUARD (AGES 45-75) - COL ON CA SCREENING 1950 COLON MONITORING 1950 COLONOSCOPY - COLON CA SCREENING 1948 CT COLONOGRAPHY - COLON CA SCREENING 1950 Colorectal Cancer Screening 1950 FIT - COLON CA SCREENING 1950 FLEX SIG - COLON CA SCREENING 1950 LIPID TESTING 1950 MAMMOGRAM 1950 MEDICARE AWV 12 MONTHS 1950 HEPATITIS C SCREENING 06/26/1966 DTAP/TDAP/TD VACCINES (1 - Tdap) 07/01/1967 PNEUMOCOCCAL VACCINE 50+ (1 of 1 - PCV) 1998 ZOSTER VACCINE (1 of 2) 1998 Respiratory Syncytial Virus (RSV) Vaccine Pt: or over 60 yrs (1 - 1-dose 75+ series) 07/01/2023 COVID-19 VACCINE ( - 2023-2 5 season) 2023 INFLUENZA VACCINE (#1) 2023 DEPRESSION SCREENING 02/15/2024 HEPATITIS B VACCINE Aged Out No longe r eligible based on patient's age to complete this topic HIB VACCINE Aged Out No longer eligi ble based on patient's age to complete this topic HPV VACCINE Aged Out No longer eligi ble based on patient's age to complete this topic MENINGOCOCCAL (Group B) VACC INE SHARED DECISION-MAKING Aged Out No longer eligibl e based on patient's age to complete this topic MENINGOCOCCAL GROUPS A/C/Y/W VACCINE Aged Out No longer eligible b ased on patient's age to complete this topic
--- NOTE | 2024-05-17 11:13 | EST_ITS ---
Patient Info Name: Francine Drummond Age: 73 years : 1950 Gender: Female Ht: 64 in Wt: 144 lbs BSA: 1.73 m2 HR: 97 bpm BP: 151 / 94 mmHg Exam Date: 05/17/2024 11:26 AM Exam Location: Echo Lab Patient Status: Outpatient Admit Date: 05/17/2024 Staff Ordering Physician: Barry Schuster DO Attending Provider: Barry Schuster DO Exercise Technologist: jose luis ortega Exercise Physician: Keyshawn Carlisle DO Exam Type: CA stress nette w NM Study Info Indications R53.83 - Other fatigue A regadenoson stress test was performed. Summary 1. 1. Negative lexiscan stress test for ischemic ST changes by ECG criteria. 2. 2. Baseline hypertension. 3. 3. Nuclear scan to follow and will be reported separately. Please correlate with it. 4. 4. Patient informed of the above results. Protocol: Lexiscan Stress ECG Details Stage: REST Duration (min): 0 min : 47 sec HR (bpm): 53 SBP (mmHg): --- DBP (mmHg): --- Stage: REST Duration (min): 6 min : 56 sec HR (bpm): 59 SBP (mmHg): 159 DBP (mmHg): 82 Stage: REST Duration (min): 11 min : 18 sec HR (bpm): 61 SBP (mmHg): 159 DBP (mmHg): 82 Stage: STAGE 1 Duration (min): 1 min : 0 sec HR (bpm): 92 SBP (mmHg): 151 DBP (mmHg): 94 Stage: RECOVERY Duration (min): 1 min : 0 sec HR (bpm): 95 SBP (mmHg): 151 DBP (mmHg): 94 Stage: RECOVERY Duration (min): 2 min : 0 sec HR (bpm): 83 SBP (mmHg): 151 DBP (mmHg): 94 Stage: RECOVERY Duration (min): 2 min : 13 sec HR (bpm): 79 SBP (mmHg): 151 DBP (mmHg): 94 Rest HR: 61 bpm Peak HR: 100 bpm Rest Sys BP: 159 mmHg Peak Sys BP: 151 mmHg Max Pred HR: 145 bpm % Max Pred HR: 69 % Target HR: 123 bpm Max RPP: 15,100 bpm*mmHg Termination Reason: Completed protocol Cardiac Symptoms: Shortness of breath Total Time: 1 min : 0 sec Rest Finch BP: 82 mmHg Peak Finch BP: 94 mmHg Total Dose: 0.4 mg Resting ECG Sinus rhythm. Stress ECG No ST changes. Arrhythmias None. Report Signatures
== END 2024-05-17 09:27 | disposition home or self-care (01) ==
PROVIDERS: PCP Internal Medicine; Visit Provider Internal Medicine
DX: R06.09 Other forms of dyspnea (principal); R53.83 Other fatigue
CPT/HCPCS: 78452; 93017; A9502; J2785

== ENCOUNTER 2024-06-25 13:24 | Outpatient (CLI) | payer MEDICARE, OTHER, SELFPAY ==
--- OUTSIDE RECORDS SUMMARY | 2024-06-25 13:28 | XMS_ITS | Continuity of Care Document ---
Author Organization [facility] Address [address] [place] [address] Phone Care Team Providers Care Circuitry Negative Inspector Name Role Phone Hill OD, Andrea Unavailable Unavailable Procedures Procedure Date Cntct Lens Hydrophil Bifocal Medical Tax Cntct Lens Hydrophil Bifocal Aionex Lessonwriter Contact Lens Check Contact Lens Check Contact Lens Check Eye Exam & Treatment Refraction Contact Lens Hydrophilic, Spherical Aionex Lessonwriter CL Replacement - Vistakon Disp W/BW Soft Aionex [facility] No Charge Contact Lens Check No Charge Contact Lens Check No Charge Contact Lens Check Eye Exam & Treatment Refraction CL Replacement - Vistakon Disp W/BW Soft Aionex [facility] Advance Directives Directive Yes / No Effective Date File Name No Information Encounters Encounter Description Practice Location Reason(s) For Visit Diagnoses Date Provider Providers Copied on Encounter [facility], [address] [place] [address] [address], [place], [place], [id number], [place] tel:[phone] [facility] No Information 0 Hill OD Andrea. [address] , [address], [place], [address], [place]. tel:[phone] [facility], [address], [place], [place], [id number], [place] tel:[phone] [facility] No Information May-1 9-201 0 Hill OD Andrea. [address] , [address], [place], [place], [facility], [place]. tel:[phone] [facility], [address], [place], [place], [id number], [place] tel:[phone] [facility] No Information May-1 4-201 0 Hill OD Andrea. [address], [place], [place], [facility], [place]. tel:[phone] [facility], [address] [place] [address] [address], [place], [place], [id number], [place] tel:[phone] [facility] No Information May-0 7-201 0 Hill OD Andrea. [address], [place], [facility], [place]. tel:[phone] [facility], [address] [place] [address] [address], [place], [place], [id number], [place] tel:[phone] [facility] No Information Apr-3 0-201 0 Hill OD Andrea. [address], [place], [facility], [place]. tel:[phone] [facility], [address] [place] [address] [address], [place], [place], [id number], [place] tel:[phone] [facility] No Information Apr-2 3-201 0 Hill OD Andrea. [address], [place], [facility], [place]. tel:[phone] [facility], [address], [place], [place], [id number], [place] tel:[phone] [facility] No Information Mar-2 3-201 0 Hill OD Andrea. [address] , [address], [place], [address], [place]. tel:[phone] [facility], [address] [place] [address] [address], [place], [place], [id number], [place] tel:[phone] [facility] No Information Sergio-0 4-200 9 Hill OD Andrea. [address], [place], [facility], [place]. tel:[phone] [facility], [address] [place] [address] [address], [place], [place], [id number], [place] tel:[phone] [facility] No Information May-2 1-200 9 Hill OD Andrea. [address], [place], [facility], [place]. tel:[phone] [facility], [address] [place] [address] [address], [place], [place], [id number], [place] tel:[phone] [facility] No Information May-0 7-200 9 Hill OD Andrea. [address], [place], [facility], [place]. tel:[phone] [facility], [address] [place] [address] [address], [place], [place], [id number], [place] tel:[phone] [facility] No Information Apr-3 0-200 9 Hill OD Andrea. [address], [place], [facility], [place]. tel:[phone] [facility], [address] [place] [address] [address], [place], [place], [address], [place] tel:[phone] [facility] No Information Apr-2 3-200 9 Hill OD Andrea. [address], [place], [facility], [place]. tel:[phone] [facility], [address], [place], [place], [id number], [place] tel:[phone] [facility] No Information 0-200 7 Hill OD Andrea. [address], [place], [address], [place]. tel:[phone] Family History Family Member Type Diagnosis Age [...]
--- OUTSIDE RECORDS SUMMARY | 2024-06-25 13:28 | XMS_ITS | Clinical Summary ---
Author Organization [facility] Address [address] [facility] [place] [address] Care Team Providers Care Tax Clerk Name Role Phone Unavailable Primary Care Provider Unavailabl e Source Comments [facility],non-owned Affiliates and Associated Physician Practices is amultiple site organization consisting of ambulatory clinics and hospital sitesin [place], [place], [place] and [place]. This disclosure is being madepursuant to the Care Everywhere program and may not contain all information available regarding this patient. 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
--- OUTSIDE RECORDS SUMMARY | 2024-06-25 13:28 | XMS_ITS | Encounter Summary ---
Author Organization [facility] Address [address] [facility] [place] [address] Care Team Providers Care Dag Sprayer Name Role Phone Unavailable Primary Care Provider Unavailabl e Encounter Details Date Type Department Care Team (Late st Contact Info) Description 02/21/2020 Lab Requisition [facility] DermPath Lab [address] [place] [phone] Geoff Farr MD [address] [place] [address] Social History Tobacco Use Types Packs/Day Years Used Date Smoking Tobacco: Never Assessed Comments Unknown Sex and Gender Information Value Date Recorded Sex Assigned at Not on file Legal Sex Female 6:33 PM KINESEOLOGIST Gender Identity Not on file Sexual Orientation Not on file documented as of this encounter Plan of Treatment Not on file documented as of this encounter Procedures Procedure Name Priority Date/Time Associated Diagnosis Comments DERMATOPATHOLOGY Routine 02/20/2020 12:0 0 AM KINESEOLOGIST documented in this encounter Results * DERMATOPATHOLOGY (02/20/2020 12:00 AM KINESEOLOGIST) Case Report Dermatopathology Report Case: [id number] Authorizing Provider: Geoff Farr MD Collected: 02/20/2020 12:00 AM Ordering Location: [facility] DermPath Lab Received: 02/21/2020 11:23 AM Pathologist: Linnette Orozco MD Specimens: A) - Skin, post left neck B) - Skin, right lat neck 1:16 PM KINESEOLOGIST DERMATOPATHOLOGY LABORATORY Final Diagnosis Specimen A. SKIN, post left neck: EPIDERMOID CYST (L72.0) NOT PRESENT AT SAMPLED MARGIN Specimen B. SKIN, right lat neck: BENIGN VERRUCOUS KERATOSIS (L82.1) SOLAR ELASTOSIS AND VASCULAR ECTASIA (L57.8) 1 1:16 PM [facility] Clinical History A: R/O neoplasm. Check margins B: R/O BCC,SCC,ISK,HAK 1 1:16 PM [facility]ERMATOPATH[facility]AT[facility] Gross Description Specimen A: Received [...] 10x9x2 mm. Jar 0. 1 1:16 PM [facility]MAT[facility] Microscopic Description Specimen A. SKIN, [...] elastosis and vascular ectasia. 1 1:16 PM [facility] Disclaimer An external and internal positive and negative controls are appropriate for the histochemical, immunohistochemical and immunofluorescence stain(s) in this case (if any), except where stated explicitly. The performance characteristics of the stain(s) cited in this report were developed and its performance characteristic determined by the Dermatopathology Laboratory at [facility], directed by Dr. Sarah Orozco. These tests need not be, and therefore are not, approved by the [place] Food and Drug Administration. The tests are used for clinical purposes. Billing Codes Specimen Charges Stain Charges 12321 86664 1 1 1 1:16 PM [facility]MATOP[facility] Embedded Images 1 1:16 PM [facility] Pathology/Cytology TISSUE SPECIMEN FROM SKIN / Unknown 02/20/2020 02/21/2020 11:23 AM KINESEOLOGIST Miscellaneous samples (specimen) TISSUE SPECIMEN FROM SKIN / Unknown 02/20/2020 02/21/2020 11:23 AM KINESEOLOGIST us Geoff Farr MD LAB - PATHOLOGY/CYTOLOGY ORD ERABLES Final Result DERMATOPATHOLOGY LABORATORY [facility] - Department of Dermatology [facility] [address] [place] [address], [address] [phone] documented in this encounter Visit Diagnoses Not on filedocumented in this encounter
--- OUTSIDE RECORDS SUMMARY | 2024-06-25 13:28 | XMS_ITS | Encounter Summary ---
Author Organization [facility] Address [address] [place] [address] Care Team Providers Care Internet Marketing Executive Name Role Phone Unavailable Primary Care Provider Unavailabl e Encounter Details Date Type Department Care Team (Late st Contact Info) Description 08/19/2023 Lab Requisition [facility] - DermPath Lab [address] [place] [id number] Geoff Farr MD [address] [place] [address] Social History Tobacco Use Types Packs/Day Years Used Date Smoking Tobacco: Never Assessed Comments Unknown Sex and Gender Information Value Date Recorded Sex Assigned at Not on file Legal Sex Female 6:33 PM [employer] AD[employer] Gender Identity Not on file Sexual Orientation Not on file documented as of this encounter Plan of Treatment Not on file documented as of this encounter Procedures Procedure Name Priority Date/Time Associated Diagnosis Comments DERMATOPATHOLOGY Routine 08/17/2023 12:0 0 AM CDT documented in this encounter Results * DERMATOPATHOLOGY (08/17/2023 12:00 AM CDT) Case Report Dermatopathology Report Case: [id number] Authorizing Provider: Geoff Farr MD Collected: 08/17/2023 12:00 AM Ordering Location: [facility] - Received: 08/22/2023 08:57 AM DermPath Lab Pathologist: Cathy Parks MD Specimen: Skin, left lateral cheek anterior to jaw angle 12:20 PM CDT DERMATOPATHOLOGY LABORATORY Final Diagnosis Specimen A. SKIN, left lateral cheek anterior to jaw angle: BENIGN VERRUCOUS KERATOSIS (L82.1) 12:20 PM CDT DERMATOPATHOLOGY LABORATORY Clinical History R/O ISK vs SCC vs AK 12:20 PM T DERMATOPATHOLOGY LABORATORY Gross Description Specimen A: Received [...] vulgaris or a seborrheic keratosis. 12:20 PM T DERMATOPATHOLOGY LABORATORY Disclaimer An external and internal positive and negative controls are appropriate for the histochemical, immunohistochemical and immunofluorescence stain(s) in this case (if any), except where stated explicitly. The performance characteristics of the stain(s) cited in this report were developed and its performance characteristic determined by the Dermatopathology Laboratory at [facility], directed by Dr. Sarah Orozco. These tests need not be, and therefore are not, approved by the [place] Food and Drug Administration. The tests are used for clinical purposes. Billing Codes Specimen Charges Stain Charges 27714 1 12:20 PM CDT DERMATOPATHOLOGY LABORATORY Embedded Images 12:20 PM CDT DERMATOPATHOLOGY LABORATORY Pathology/Cytolog y TISSUE SPECIMEN FROM SKIN / Unknown 08/17/2023 08/22/2023 8:57 AM CDT us Geoff Farr MD LAB - PATHOLOGY/CYTOLOGY ORD ERABLES Final Result DERMATOPATHOLOGY LABORATORY [facility] - Department of Dermatology [address], [address] [phone] documented in this encounter Visit Diagnoses Not on filedocumented in this encounter
[2024-06-27 15:39] LABS: Thyroid Peroxidase Antibodies 160 IU/mL (<9)
== END 2024-06-25 13:25 | disposition home or self-care (01) ==
LOC: ANHGOSHLAB 13:26
PROVIDERS: PCP Internal Medicine; Visit Provider Otolaryngology
DX: E07.9 Disorder of thyroid, unspecified (principal)
CPT/HCPCS: 36415; 86376

== ENCOUNTER 2024-10-26 14:03 | Outpatient (CLI) | payer MEDICARE, OTHER, SELFPAY ==
--- NOTE | ~2024-10-26 | MM_ITS ---
EXAMINATION: MM screening karen BI w rufus HISTORY: Screening TECHNIQUE: Craniocaudal and mediolateral oblique 3-D tomosynthesis images were obtained and synthetic 2-D images were generated. CAD analysis was submitted and interpreted. COMPARISON: Mammogram 07/02/2022 BREAST PARENCHYMAL COMPOSITION: There are scattered areas of fibroglandular density. FINDINGS: There is no evidence of suspicious mass, calcification, or architectural distortion to suggest malignancy. There has been no suspicious interval change. IMPRESSION: 1. No mammographic evidence of malignancy. Recommend routine screening mammography in one year. BI-RADS Category 2: Benign finding(s) Reviewed, dictated and finalized at location Q. IMPRESSION: 1. No mammographic evidence of malignancy. Recommend routine screening mammogra phy in one year. BI-RADS Category 2: Benign finding(s)
== END 2024-10-26 14:04 | disposition home or self-care (01) ==
LOC: MICIMG 14:05
PROVIDERS: PCP Obstetrics & Gynecology Gynecology; Visit Provider Internal Medicine
DX: Z12.31 Encounter for screening mammogram for malignant neoplasm of breast (principal)
CPT/HCPCS: 77063; 77067